=== PATIENT | male | born 2000 | race Hispanic/Latino ===

== ENCOUNTER 2022-02-12 00:41 | Emergency (ER) | payer SELFPAY ==
[2022-02-12] MEDS ORDERED: Triple Antibiotic Oint 1 GM Packet ONE (02:03)
[2022-02-12] MEDS ORDERED: Boostrix 0.5 ML (Tdap) VIAL (>/=7 yrs of age) ONE (02:08)
== END 2022-02-12 02:25 | disposition home or self-care (01) ==
LOC: ERS 00:41
DX: S01.01XA Laceration without foreign body of scalp, initial encounter (principal); F10.129 Alcohol abuse with intoxication, unspecified; W22.8XXA Striking against or struck by other objects, initial encounter
CPT/HCPCS: 12001; 90471; 90715

== ENCOUNTER 2022-02-19 18:28 | Emergency (ER) | payer SELFPAY | END 2022-02-19 19:44 | disposition home or self-care (01) | LOC: ERS 18:28 | DX: S01.01XD Laceration without foreign body of scalp, subsequent encounter (principal); W19.XXXD Unspecified fall, subsequent encounter ==